=== PATIENT | male | born 1960 | race Caucasian/White ===

== ENCOUNTER 2017-07-30 11:20 | Emergency (ER) | payer BC ==
[~2017-07-30] VITALS: Ht 172.7 cm; Wt 93.4 kg
[2017-07-30] MEDS ORDERED: HYDROCODON-ACE1 EAC4 (11:35)
[2017-07-30] MEDS ORDERED: TOPROL XL25 MG (11:35)
[2017-07-30] MEDS ORDERED: LIPITOR40 MG (11:35)
[2017-07-30] MEDS ORDERED: PLAVIX75 MG (11:36)
== END 2017-07-30 16:39 | disposition home or self-care (01) ==
LOC: ER 11:20
DX: B34.9 Viral infection, unspecified (principal); M54.5 Low back pain; R50.9 Fever, unspecified

== ENCOUNTER → 2017-10-27 | Emergency (ER) | payer BC ==
[~2017-10-27] VITALS: Ht 172.7 cm; Wt 96.2 kg
[~2017-10-27] MED LIST: HYDROCODON-ACE1 EAC4; LIPITOR40 MG; PLAVIX75 MG; TOPROL XL25 MG
== END | disposition home or self-care (01) ==
LOC: ER 10:26
DX: R42 Dizziness and giddiness (principal)